=== PATIENT | male | born 1995 | race African-American/Black ===

== ENCOUNTER 2019-02-20 21:11 | Emergency (ER) | payer SELFPAY ==
[~2019-02-20] VITALS: Ht 182.9 cm; Wt 70.0 kg
[2019-02-20 22:27] VITALS: BP 128/67
[2019-02-21] MEDS ORDERED: IBUPROFEN 600MG TABLET PO ONE
== END 2019-02-21 01:19 | disposition home or self-care (01) ==
LOC: ER 21:11
DX: S60.222A Contusion of left hand, initial encounter (principal); V00.131A Fall from skateboard, initial encounter; Y93.89 Activity, other specified; Y92.89 Other specified places as the place of occurrence of the external cause; Y99.8 Other external cause status
CPT/HCPCS: 73130; 99283

== ENCOUNTER 2022-10-26 13:54 | Emergency (ER) | payer MEDICAID ==
[~2022-10-26] VITALS: Ht 182.9 cm; Wt 80.0 kg
[2022-10-26] MEDS ORDERED: IBUPROFEN 400MG TABLET PO ONE (17:30)
[2022-10-26 17:46] VITALS: BP 107/66
[2022-10-26] MEDS ORDERED: ACET-2708 MT (18:21)
[2022-10-26] MEDS ORDERED: IBUP-2028 MT (18:21)
== END 2022-10-26 18:40 | disposition home or self-care (01) ==
LOC: ER 13:54
DX: B34.9 Viral infection, unspecified (principal)
CPT/HCPCS: 87804; 99283

== ENCOUNTER 2023-02-15 18:31 | Emergency (ER) | payer SELFPAY ==
[~2023-02-15] VITALS: Ht 182.9 cm; Wt 68.0 kg
[~2023-02-15 18:31] MED LIST: ACET-2708 MT; IBUP-2028 MT
[2023-02-15 18:54] VITALS: BP 103/59
[2023-02-15] MEDS ORDERED: FLUORESCEIN SODIUM 1MG/STRIP RIGHTEYE ONE (19:45)
[2023-02-15] MEDS ORDERED: TETRACAINE 0.5% OPHTH DROPS 4ML RIGHTEYE ONE (19:45)
[2023-02-15] MEDS ORDERED: IBUPROFEN 400MG TABLET PO ONE (19:45)
[2023-02-15] MEDS ORDERED: IBUP-2028 MT (20:20)
[2023-02-15] MEDS ORDERED: SULF15DR26 RIGHTEYE (20:20)
== END 2023-02-15 21:27 | disposition home or self-care (01) ==
LOC: ER 18:31
DX: H57.11 Ocular pain, right eye (principal)
CPT/HCPCS: 99284